=== PATIENT | male | born 1950 | race Caucasian/White ===

== ENCOUNTER → 2017-01-28 | Outpatient (CLI) | payer OTHER, MEDICAID | LOC: FIMAGING 12:57 | PROVIDERS: ATTEND Internal Medicine Hematology & Oncology | DX: D47.2 Monoclonal gammopathy (principal) ==

== ENCOUNTER → 2018-06-04 | Outpatient (CLI) | payer OTHER, MEDICAID ==
[~2018-06-04] MED LIST: GADOBUTROL 10 ML VIAL IVP ONE
== END ==
LOC: FIMAGING 15:11
DX: R47.01 Aphasia (principal)
CPT/HCPCS: 70553; A9585; 82565-PO

== ENCOUNTER 2018-06-19 14:51 | Inpatient (IN) | payer OTHER, MEDICAID ==
--- NOTE | 2018-06-19 15:16 | EDPHY ---
HPI/HX/ROS/PE/MDM Narrative: CHIEF COMPLAINT: "I thought I may have been having some clots". HISTORY OF PRESENT ILLNESS: This patient is 67 year old male with past medical history including hypertension, PE/DVT, and lumbar back pain/nerve impingement. He arrives today via EMS for evaluation of bilateral "kidney pain" as well as right lower extremity pain and swelling. His symptoms began four days ago. Today, his discomfort is somewhat relieved. He denies any swelling or discoloration in his leg, and those symptoms did occur with his prior clots. He states the pain is also different in this case; "it feels like I ran into a tree and bruised myself ". In the past, his clots have been associated with sharp pains. He presents today because his daughter, who is a AMMUNITION SPECIALIST, felt that his legs seemed swollen and recommended he visit his primary care provider. His PCP's office recommended he come to the ED to r/o DVT. Saturday, the patient felt unwell with nausea and vomiting. He has felt lightheaded with orthostatic changes. He endorses difficulty urinating this week. Denies dysuria. No fever, chills, chest pain, shortness of breath, palpitations, diarrhea, headache, extremity numbness, paresthesias, or weakness. Of note, the patient was formerly anticoagulated (Xarelto) for his PEs/DVTs, but this was discontinued in January following two falls with head injuries. REVIEW OF SYSTEMS: A comprehensive 10 system review of systems is otherwise negative aside from elements mentioned in the history of present illness and medical decision making. PAST MEDICAL HISTORY: 1. History of PE / LLE DVT 2. GERD 3. Diverticulitis 4. Depression 6. Hypertension 7. Lumbar impingement/sciatica 8. History of acute kidney injury 9. History of closed head injury SOCIAL HISTORY: Nonsmoker. Single. Retired. Lives in [place]. VITAL SIGNS: Reviewed by me GENERAL: Tremorous, somewhat uncomfortable appearing. No respiratory distress. HEENT: Atraumatic. Eyes: No icterus, no injection. Mouth: dry mucous membranes. No erythema or lesions. Neck: supple with no adenopathy. LUNGS: Tachypneic. Initial wheeze on the left, cleared with inspiration. CARDIAC: Regular tachycardia, no rubs, murmurs or gallops. ABDOMEN: Soft, nontender, nondistended, bowel sounds normal. BACK: Pain over bilateral SI areas. EXTREMITIES: RLE: Swollen, tense, warm to touch from mid thigh through popliteal fossa to calf. Femoral pulses present, right decreased compared to left. Good distal pulses. No trauma. Range of motion is normal throughout. NEURO: Alert and oriented, grossly nonfocal. SKIN: Warm and dry, no rash. PSYCHIATRIC: Normal mentation, no agitation. Portions of this note were transcribed by a medical technicians. I personally performed a history, physical exam, medical decision making, and confirmed accuracy of information the transcribed note. ED Course: 67 year old male with history of prior PE/DVT presents with right calf pain and bilateral lower back pain. He is not currently anticoagulated. He was hypoxic at triage, SpO2 88%. He is mildly tachypneic and tachycardic, and appears tremorous and uncomfortable. On exam, the patient's RLE appears swollen, tense, and warm to touch from mid-thigh to calf. His back discomfort is primarily over the sacroiliac area bilaterally. Lungs are clear to auscultation with the exception of wheeze on the left which cleared. IV established. He is no longer anticoagulated. Plan for EKG, chest x-ray, labs including CBC, chemistries, liver panel, BNP, UA , d-dimer. Plan for i-stat Troponin and Chem8. Plan for US RLE to r/o DVT or other acute processes. He declines any pain medication at this time. Plan to administer 1L IV NS. Reviewed i-stat. BGL elevated at 232. Otherwise normal, Creatinine 0.6. Troponin negative. 16:00 12-LEAD EKG: Please see the full report in [facility]. My interpretation: Sinus tachycardia, abnormal R wave progression, borderline T wave abnormalities. D-dimer elevated at 8.62. US report pending. Reviewed chest x-ray. Evidence of chronic bronchitis/airways disease. Patchy left lower lobe retrocardiac opacity may represent acute pneumonia vs pulmonary embolus. Discussed these findings with the patient. He feels this may be chronic from his prior PE. Plan for CTA of the chest for further evaluation. 17:[address] Joyner, radiologist. US RLE shows evidence of large thrombus extending from the common femoral vein to the popliteal on the right. Plan to administer Heparin per standard ED protocol. 18:[address] Nix, hospitalist. Plan for admission as above. 18:[address] Hurtado, radiologist. CTA shows bilateral PEs with near complete occlusion on the right. No evidence of right heart strain. No evidence of pneumonia. 18:37 Dr. Nix accepts admission for bilateral PEs, RLE DVT. 18:41 Spoke with patient's daughter per his request. Sepsis Evaluation Note: The patient presents to the ED with leg swelling, shortness of breath, some tachypnea, and hypoxia. There is no history of fever or upper respiratory infection. Chest x-ray initially demonstrated a possible pneumonia, however CT scan did not confirm this. Patient did have an elevated initial lactic acid at 2.4. I do not believe this represents severe sepsis. Patient does not meet criteria for sepsis. Repeat lactic acid has diminished to 2.0. MDM: Differential diagnosis for the patient's primary complaint of leg swelling was considered including but not limited to cellulitis, hypoalbuminemia, congestive heart failure, cor pulmonale, chronic venous stasis and DVT. - Data Points Imaging Results: Chest X-Ray 06/19/18 15:42 Impression: 1. Chronic bronchitis/airways disease. 2. Linear scarring in the right lower lobe. 3. Patchy left lower lobe retrocardiac opacity may represent acute pneumonia. 4. Consider additional imaging if clinically indicated. Extremity Venous Study 06/19/18 15:42 Impression: 1. DVT right lower extremity extending from the common femoral vein through the popliteal vein. Findings discussed with Paz Monaco MD at 17:04 hour, 06/19/2018. Chest/Thorax CTA 06/19/18 16:59 Impression: 1. Acute bilateral pulmonary embolism as described, no CT evidence of right heart strain. 2. Decrease in size of focal irregular opacity in the right lower lobe with adjacent linear scarring. This may represent scarring from previous pneumonia, given stability malignancy is much less likely, however consideration of PET scan for further evaluation may be helpful as clinically warranted These findings were discussed with Paz Monaco by telephone at 6:32 PM on . Imaging: I viewed and interpreted images myself Laboratory Results: Laboratory Results 06/20/18 06:40 06/19/18 15:35 Medications Given: Bupropion HCl (Wellbutrin Xl) 150 mg PO DAILY [facility] Stop: 12/17/18 08:59 Last Admin: 06/21/18 09:54 Dose: 150 mg Dabigatran (Pradaxa) 150 mg PO BID [facility] Stop: 12/17/18 17:59 Last Admin: 06/21/18 09:54 Dose: 150 mg Docusate Sodium (Colace) 100 mg PO DAILY@18 [facility] Stop: 12/17/18 17:59 Last Admin: 06/20/18 19:18 Dose: 100 mg Duloxetine HCl (Cymbalta) 60 mg PO BID [facility] Stop: 12/17/18 08:59 Last Admin: 06/21/18 09:54 Dose: 60 mg Ezetimibe (Zetia) 10 mg PO DAILY [facility] Stop: 12/17/18 08:59 Last Admin: 06/21/18 09:54 Dose: 10 mg Finasteride (Proscar) 5 mg PO HS [facility] Stop: 12/17/18 20:59 Last Admin: 06/20/18 22:15 Dose: 5 mg Insulin Human Lispro (Humalog Lispro) 0 unit SC TIDMEAL [facility] PRN Reason: Protocol Stop: 12/17/18 07:59 Last Admin: 06/21/18 09:57 Dose: Not Given Magnesium Hydroxide (Milk Of Magnesia) 30 ml PO DAILY@18 [facility] Stop: 12/17/18 17:59 Last Admin: 06/20/18 19:18 Dose: 30 ml Miscellaneous Medication (Linaclotide [Linzess]) 145 mcg PO DAILY [facility] Stop: 12/17/18 08:59 Last Admin: 06/21/18 09:58 Dose: 145 mcg Polyethylene Glycol (Miralax) 17 gm PO DAILY@18 [facility] Stop: 12/17/18 17:59 Last Admin: 06/20/18 19:18 Dose: 17 gm Senna/Docusate Sodium (Senokot-S) 1 - 2 tab PO BID [facility] PRN Reason: Protocol Stop: 12/17/18 20:59 Last Admin: 06/21/18 09:54 Dose: 2 tab Discontinued Medications Heparin Sodium (Porcine) (Heparin Injection) 0 unit IVP EDNOW ONE Stop: 06/19/18 17:01 Last Admin: 06/19/18 17:24 Dose: 6,300 units Heparin Sodium (Porcine) (Heparin Injection) 0 unit IVP PRN PRN PRN Reason: re-bolus required by protocol Stop: 12/16/18 19:25 Last Admin: 06/20/18 14:31 Dose: 1,177 units Sodium Chloride (Ns) 1,000 mls @ 0 mls/hr IV ONCE ONE; Wide Open PRN Reason: Protocol Stop: 06/19/18 15:42 Last Admin: 06/19/18 16:39 Dose: 1,000 mls Heparin Sodium (Porcine) (Heparin 50 Units/Ml (Premix)) 500 mls @ 0 mls/hr IV EDNOW ONE; Per Protocol PRN Reason: Protocol Stop: 06/19/18 17:01 Last Admin: 06/19/18 17:30 Dose: 500 mls Sodium Chloride (Ns) 1,000 mls @ 100 mls/hr IV CONT [facility] Stop: 12/16/18 19:14 Last Admin: 06/20/18 11:22 Dose: 1,000 mls Heparin Sodium (Porcine) (Heparin 50 Units/Ml (Premix)) 500 mls @ 0 mls/hr IV CONT [facility]; Per Protocol PRN Reason: Protocol Stop: 06/20/18 20:30 Last Admin: 06/20/18 11:22 Dose: 500 mls Point of Care Test Results: Chemistry 06/20/18 06/20/18 06/20/18 13:27 13:23 07:45 POC Sodium POC Potassium POC Chloride POC BUN POC Creatinine POC Glucose 106 mg/dL H mg/dL < 20 mg/dL L* mg/dL 104 mg/dL H mg/dL (70-100) (70-100) (70-100) POC Troponin I 06/20/18 06/19/18 06/19/18 02:03 16:03 15:59 POC Sodium 140 mEq/L mEq/L (135-145) POC Potassium 3.7 mEq/L mEq/L (3.3-5.0) POC Chloride 109 mEq/L mEq/L (97-110) POC BUN 21 mg/dL mg/dL (7-23) POC Creatinine 0.6 mg/dL L mg/dL (0.7-1.3) POC Glucose 95 mg/dL mg/dL 232 mg/dL H mg/dL (70-100) (70-100) POC Troponin I 0.01 ng/mL ng/mL (0.00-0.08) ISTAT H&H 06/19/18 16:03 POC Hgb 15.3 gm/dL gm/dL (13.7-17.5) POC Hct 45 % % (40-51) General Time Seen by Provider: 06/19/18 15:12 Initial Vital Signs: Initial Vital Signs Heart Rate 126 H 06/19/18 15:02 Respiratory Rate 18 06/19/18 15:02 Blood Pressure 149/94 H 06/19/18 15:02 O2 Sat (%) 88 L 06/19/18 15:02 O2 Delivery Mode Nasal Cannula O2 (L/minute) 1 Allergies/Adverse Reactions: Sulfa (Sulfonamide Antibiotics) Allergy (Verified 06/19/18 19:55) Rash, Itching Home Medications: Medication Instructions Recorded Docusate Sodium [Colace 100 MG (*)] 100 mg PO DAILY@18 02/27/15 Magnesium Hydroxide [Milk of 30 ml PO DAILY@02/27/15 Magnesia (*)] diphenhydrAMINE [Benadryl 25 MG 25 - 50 mg PO HS PRN 02/27/15 (*)] DULoxetine [Cymbalta 60 MG (*)] 60 mg PO BID 02/28/15 Ezetimibe [Zetia 10 MG (*)] 10 mg PO DAILY 06/19/18 Finasteride [Proscar 5 MG (*)] 5 mg PO HS 06/19/18 Herbals/Supplements -Info Only 1 ea PO Q2D 06/19/18 Linaclotide [Linzess] 145 mcg PO DAILY 06/19/18 Polyethylene Glycol 3350 [Miralax 17 gm PO DAILY@18 06/19/18 17 gm (*)] Psyllium Husk/Aspartame [Metamucil 3.4 gm PO DAILY@18 06/19/18 Fiber Singles Packet] buPROPion XL [Wellbutrin 150mg XL] 150 mg PO DAILY 06/19/18 Dabigatran Etexilate Mesyl 150 mg PO BID #60 cap 06/21/18 [Pradaxa 150 MG (*)] Departure - Departure Disposition: [facility] Acute Clinical Impression: Bilateral pulmonary embolism Deep vein thrombosis (DVT) of right lower extremity Qualifiers: Affected thrombotic vein of extremity: femoral Chronicity: acute Qualified Code (s): I82.411 - Acute embolism and thrombosis of right femoral vein Condition: Fair Report Scribed for: Paz Monaco Report Scribed by: Patria Chao Date of Report: 06/19/18 Time of Report: 15:16
[2018-06-19] MEDS ORDERED: NS 1,000 ML IV ONE (15:41)
[2018-06-19 16:06] LABS: PLATELET COUNT 289 10^3/uL (150-400)
[2018-06-19] MEDS ORDERED: HEPARIN 10,000 UNIT/10 ML MDV (1,000 UNIT/ML) IVP ONE (17:00)
[2018-06-19] MEDS ORDERED: HEPARIN/DEXTROSE 500 ML IV ONE (17:00)
[2018-06-19 17:16] LABS: INR 1.08 (0.83-1.16); PROTIME(PATIENT) 14.2 SEC (12.0-15.0)
[2018-06-19] MEDS ORDERED: IOPAMIDOL (ISOVUE 370) 100 ML BTL IV ONE (18:04)
[2018-06-19] MEDS ORDERED: ONDANSETRON 4 MG/2 ML VIAL IVP PRN (19:07)
[2018-06-19] MEDS ORDERED: LORazepam 0.5 MG TAB PO PRN (19:07)
[2018-06-19] MEDS ORDERED: oxyCODONE IR 5 MG TAB PO PRN (19:07)
[2018-06-19] MEDS ORDERED: ONDANSETRON DISINTEGRATING 4 MG TAB PO PRN (19:07)
[2018-06-19] MEDS ORDERED: ACETAMINOPHEN 325 MG TAB PO PRN (19:07)
--- NOTE | 2018-06-19 19:15 | PDGENHP ---
History and Physical - Chief Complaint right leg and "kidney" pain - History of Present Illness 67yo M with history of multiple recurrent PE/DVTs taken off anticoagulation by Dr Gonzalez 01/2018 due to a series of falls presents with 2-3 days of worsening right leg and "kidney" pain. He symptoms are quite vague. He has noticed some slight swelling of his right leg. He denies any shortness of breath, chest pain , pleuritic pain, or presyncopal symptoms. In the ED, a RLE ultrasound showed a DVT involving the common femoral vein. Due to mild tachycardia and relative hypoxemia (sat 88%), a CTA of chest was done which showed acute bilateral PEs. He was started on IV heparin. Case discussed with ED physician Paz Monaco. History Information - Allergies/Home Medication List Allergies/Adverse Reactions: Sulfa (Sulfonamide Antibiotics) Allergy (Verified 06/19/18 15:06) SULFA Allergy (Uncoded 06/19/18 15:06) Home Medications: ARIPiprazole [Abilify 5 mg (*)] 5 mg PO DAILY 02/27/15 [Last Taken 02/27/15] Dextroamphetamine/Amphetamine [Adderall Xr 5 mg Capsule] 5 mg PO DAILY 02/27/15 [Last Taken 02/27/15] Docusate Sodium [Colace 100 MG (*)] 500 mg PO HS 02/27/15 [Last Taken 02/26/15] Ibuprofen [Motrin (*)] 400 mg PO Q8 PRN 02/27/15 [Last Taken 02/26/15] Lisinopril [Zestril 20 mg (*)] 20 mg PO HS 02/27/15 [Last Taken 02/26/15] Magnesium Hydroxide [Milk of Magnesia (*)] 30 ml PO HS 02/27/15 [Last Taken 03/05] diphenhydrAMINE [Benadryl 25 MG (*)] 25 - 50 mg PO HS PRN 02/27/15 [Last Taken 02/26/15] DULoxetine [Cymbalta 60 MG (*)] 60 mg PO BID 02/28/15 [Last Taken 02/27/15] I have personally reviewed and updated: family history, medical history, social history, surgical history - Past Medical History Additional medical history: multiple recurrent DVT and PE, HTN, RLL pulmonary nodule, recurrent diverticulitis, sciatic nerve pain, 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, perianal cyst with fistula tract formation, h/o failure to thrive requiring 24 hour care at disposition, major depressive disorder, tremor - Surgical History Reports: no pertinent surgical hx - Family History Additional family history: father of pancreatic cancer, mother had lung cancer, no known thromboembolic disease - Social History Smoking Status: Never smoked Alcohol Use: Rarely Drug Use: None Additional social history: Currently lives independently in [place], has daughter in the area Review of Systems Review of Systems: ROS: 10pt was reviewed & negative except for what was stated in HPI & below Physical Exam Physical Exam: Temp Pulse Resp BP Pulse Ox 102 H 18 143/84 H 93 06/19/18 17:22 06/19/18 17:22 06/19/18 17:22 06/19/18 17:22 Constitutional: no apparent distress, appears nourished, not in pain Eyes: PERRL, anicteric sclera, EOMI Ears, Nose, Mouth, Throat: moist mucous membranes, hearing normal, ears appear normal, no oral mucosal ulcers Cardiovascular: regular rate and rhythym, no murmur, rub, or gallop, edema ( trace pitting edema in BLE), No JVD Respiratory: no respiratory distress, no rales or rhonchi, clear to auscultation Gastrointestinal: normoactive bowel sounds, soft, non-tender abdomen, no palpable masses Genitourinary: no bladder fullness, no bladder tenderness Skin: warm, normal color, no rashes or abrasions, no fluctuance, no induration, No mottled Musculoskeletal: full muscle strength, no muscle tenderness, normal joint ROM, no joint effusions Neurologic: AAOx3, other (bilateral arm tremor) Psychiatric: interacting appropriately, not anxious, not encephalopathic, thought process linear Lab Data & Imaging Review 06/19/18 15:35 06/19/18 15:35 WBC 7.41 10^3/uL (3.80-9.50) 06/19/18 15:35 RBC 5.00 10^6/uL (4.40-6.38) 06/19/18 15:35 Hgb 15.1 g/dL (13.7-17.5) 06/19/18 15:35 POC Hgb 15.3 gm/dL (13.7-17.5) 06/19/18 16:03 Hct 44.3 % (40.0-51.0) 06/19/18 15:35 POC Hct 45 % (40-51) 06/19/18 16:03 MCV 88.6 fL (81.5-99.8) 06/19/18 15:35 MCH 30.2 pg (27.9-34.1) 06/19/18 15:35 MCHC 34.1 g/dL (32.4-36.7) 06/19/18 15:35 RDW 13.5 % (11.5-15.2) 06/19/18 15:35 Plt Count 289 10^3/uL (150-400) 06/19/18 15:35 MPV 9.8 fL (8.7-11.7) 06/19/18 15:35 Neut % (Auto) 69.0 % (39.3-74.2) 06/19/18 15:35 Lymph % (Auto) 18.4 % (15.0-45.0) 06/19/18 15:35 [place] % (Auto) 7.8 % (4.5-13.0) 06/19/18 15:35 Eos % (Auto) 3.5 % (0.6-7.6) 06/19/18 15:35 Baso % (Auto) 0.4 % (0.3-1.7) 06/19/18 15:35 Nucleat RBC Rel Count 0.0 % (0.0-0.2) 06/19/18 15:35 Absolute Neuts (auto) 5.11 10^3/uL (1.70-6.50) 06/19/18 15:35 Absolute Lymphs (auto) 1.36 10^3/uL (1.00-3.00) 06/19/18 15:35 Absolute Monos (auto) 0.58 10^3/uL (0.30-0.80) 06/19/18 15:35 Absolute Eos (auto) 0.26 10^3/uL (0.03-0.40) 06/19/18 15:35 Absolute Basos (auto) 0.03 10^3/uL (0.02-0.10) 06/19/18 15:35 Absolute Nucleated RBC 0.00 10^3/uL (0-0.01) 06/19/18 15:35 Immature Gran % 0.9 % (0.0-1.1) 06/19/18 15:35 Immature Gran # 0.07 10^3/uL (0.00-0.10) 06/19/18 15:35 PT 14.2 SEC (12.0-15.0) 06/19/18 15:35 INR 1.08 (0.83-1.16) 06/19/18 15:35 APTT 25.9 SEC (23.0-38.0) 06/19/18 15:35 D-Dimer 8.62 ug/mLFEU (0.00-0.50) H 06/19/18 15:35 VBG Lactic Acid 2.3 mmol/L (0.7-2.1) H 06/19/18 16:54 POC Sodium 140 mEq/L (135-145) 06/19/18 16:03 Sodium 139 mEq/L (135-145) 06/19/18 15:35 POC Potassium 3.7 mEq/L (3.3-5.0) 06/19/18 16:03 Potassium 4.1 mEq/L (3.3-5.0) 06/19/18 15:35 POC Chloride 109 mEq/L (97-110) 06/19/18 16:03 Chloride 108 mEq/L (97-110) 06/19/18 15:35 Carbon Dioxide 18 mEq/l (22-31) L 06/19/18 15:35 Anion Gap 13 mEq/L (6-14) 06/19/18 15:35 POC BUN 21 mg/dL (7-23) 06/19/18 16:03 BUN 20 mg/dL (7-23) 06/19/18 15:35 Creatinine 0.7 mg/dL (0.7-1.3) 06/19/18 15:35 POC Creatinine 0.6 mg/dL (0.7-1.3) L 06/19/18 16:03 Estimated GFR > 60 06/19/18 15:35 Glucose 223 mg/dL (70-100) H 06/19/18 15:35 POC Glucose 232 mg/dL (70-100) H 06/19/18 16:03 Calcium 10.2 mg/dL (8.5-10.4) 06/19/18 15:35 Total Bilirubin 0.4 mg/dL (0.1-1.4) 06/19/18 15:35 Conjugated Bilirubin 0.1 mg/dL (0.0-0.5) 06/19/18 15:35 Unconjugated Bilirubin 0.3 mg/dL (0.0-1.1) 06/19/18 15:35 AST 30 IU/L (17-59) 06/19/18 15:35 ALT 35 IU/L (21-72) 06/19/18 15:35 Alkaline Phosphatase 85 IU/L (38-126) 06/19/18 15:35 POC Troponin I 0.01 ng/mL (0.00-0.08) 06/19/18 15:59 NT-Pro-B Natriuret Pep 51 pg/mL (0-125) 06/19/18 15:35 Total Protein 6.8 g/dL (6.3-8.2) 06/19/18 15:35 Albumin 3.8 g/dL (3.5-5.0) 06/19/18 15:35 Visualized and Interpreted imaging results: Yes Interpretation: CXR: chronic bronchitis, RLL linear scarring. RLE duplex US: + for DVT involving common femoral to popliteal veins. CTA chest: acute bilateral PEs invovling R and L main pulmonary arteries, no e/o right heart strain Visualized and Interpreted EKG results: Yes EKG additional interpertation: ECG: sinus rhtyhm, early R wave progression, no right heart strain, no acute ischemia Assessment & Plan Assessment: 67yo M with history of multiple recurrent PE/DVTs taken off anticoagulation by Dr Gonzalez 01/2018 due to a series of falls presents with 2-3 days of vague right leg and back pain found to have RLE DVT and bilateral PEs. Plan: 1. Acute bilateral pulmonary emboli and RLE DVT: Fortunately he is hemodynamically stable without radiographic or ecg evidence of right heart strain. Oxygenating well on room air. This is a recurrent issue for him; hypercoaguable work up in past unrevealing. PESI score 96, indicating intermediate risk. - Continue heparin gtt - Would involve hematology in AM to discuss anticoagulation strategy moving forward (he has reportedly clotted through therapeutic warfarin and has history of falls prompting discontinuation of OAC in the past - IVC filter may not be bad idea to consider - Gentle IVF to maintain preload 2. Elevated lactate: Hypoperfusion related to clots. IVF and will recheck. 3. H/o falls: Will order PT/OT 4. RLL pulmonary nodule: Stable on imaging 5. HTN: Hold home lisinopril for now. 6. Depression: Home meds. VTE ppx: therapeutic anticoagulation Diet: regular Code: full Dispo: Admit under observation for management of acute PE/DVT.
[2018-06-19] MEDS ORDERED: HEPARIN 10,000 UNIT/10 ML MDV (1,000 UNIT/ML) IVP PRN (19:26)
[2018-06-19] MEDS ORDERED: HEPARIN/DEXTROSE 500 ML IV SCH (19:30)
[2018-06-19] MEDS ORDERED: D50W 25 GM/50 ML SYR IVP PRN (19:34)
[2018-06-19] MEDS ORDERED: diphenhydrAMINE 25 MG CAP PO PRN (21:53)
--- NOTE | 2018-06-19 23:21 | CPEKG ---
Test Reason : OPEN Blood Pressure : / mmHG Vent. Rate : 102 BPM Atrial Rate : 103 BPM P-R Int : 133 ms QRS Dur : 082 ms QT Int : 291 ms P-R-T Axes : 060 056 079 degrees QTc Int : 379 ms Sinus tachycardia Abnormal R-wave progression, early transition Borderline T wave abnormalities u waves seen Confirmed by Paz Monaco ([id number]) on 06/19/2018 11:20:28 PM Referred By: Confirmed By:Paz Monaco
[2018-06-19] MEDS: NS 1,000 ML IV SCH (23:52)
[2018-06-20] MEDS: INSULIN LISPRO 100 UNIT/ML SC SCH ×3 (07:58→18:24)
[2018-06-20] MEDS: buPROPion XL 150 MG TAB PO SCH (09:02)
[2018-06-20] MEDS: DULoxetine 60 MG CAP PO SCH ×2 (09:02→22:15)
[2018-06-20] MEDS: EZETIMIBE 10 MG TAB PO SCH (09:14)
[2018-06-20] MEDS: Linaclotide [Linzess] 145 MCG PO SCH (10:18)
[2018-06-20] MEDS ORDERED: HEPARIN/DEXTROSE 500 ML IV SCH (11:00)
[2018-06-20] MEDS: NS 1,000 ML IV SCH (11:22)
[2018-06-20] MEDS ORDERED: MAGNESIUM HYDROXIDE 30 ML UDCUP PO PRN (11:45)
[2018-06-20] MEDS ORDERED: BISACODYL 10 MG SUPP PR PRN (11:45)
[2018-06-20] MEDS ORDERED: LACTULOSE 20 GM/30 ML UDCUP PO PRN (11:45)
[2018-06-20] MEDS ORDERED: POLYETHYLENE GLYCOL 3350 17 GM PKT PO PRN (11:45)
--- NOTE | 2018-06-20 14:27 | HOSPPROG ---
Hospitalist Progress Note Assessment/Plan: 67yo M with history of multiple recurrent PE/DVTs taken off anticoagulation by Dr Gonzalez 01/2018 due to a series of falls presents with 2-3 days of vague right leg and back pain found to have RLE DVT and bilateral PEs. First encounter , chart reviewed. Have asked hematology, oncology to see * Acute bilateral pulmonary emboli and RLE DVT -heparin gtt- will dc this 30 minutes prior to starting Pradaxa this evening -has failed Coumadin in the OP setting, also has falling issues due to a neuropathy -appreciate Dr Barclay -will start him on Pradaxa-it has a reversal agent (have asked CM to be sure this can be covered) -hypoxia due to this * Elevated lactate -resolved * H/o falls -has had a full w/u done by neurology and it is r/t ongoing neuropathy in his legs and they give out -PT and OT to see -has some care givers a few days a week but likely needs more -spoke w CM and they will f/u *enlarged prostate -has an appt w a urologist for further evaluation -reviewed his ua which does not show any infectious etiology. * RLL pulmonary nodule: Stable on imaging * HTN: Hold home lisinopril for now. * Depression: Home meds resumed *Plan: patient will need to be transitioned to OAC, started this evening/ will ask PT to evaluate to be sure he is stable to return home. Family is concerned about his ongoing weakness. Hopefully, can dc in the morning. Subjective: Ron is concerned about ongoing weakness and neuropathy in his legs , having some difficulty w voiding (has an appt to f/u with urology) Objective: Vital Signs Temp Pulse Resp BP Pulse Ox 36.5 C 71 16 125/73 H 97 06/20/18 12:00 06/20/18 12:00 06/20/18 12:00 06/20/18 12:00 06/20/18 12:00 Laboratory Results 06/20/18 06:40 06/19/18 06/20/18 06/21/18 05:59 05:59 05:59 Intake Total 1000 Output Total 800 525 Balance 200 -525 PT 14.2 SEC (12.0-15.0) 06/19/18 15:35 INR 1.08 (0.83-1.16) 06/19/18 15:35 - Physical Exam Constitutional: appears nourished, chronically ill appearing Eyes: PERRL Ears, Nose, Mouth, Throat: hearing normal Cardiovascular: regular rate and rhythym Respiratory: no respiratory distress Gastrointestinal: normoactive bowel sounds Skin: warm, No normal color (pale) Musculoskeletal: generalized weakness Neurologic: AAOx3 Psychiatric: interacting appropriately, not anxious, not encephalopathic ICD10 Worksheet Patient Problems: Problems Problem Status Onset Bilateral pulmonary embolism Acute Deep vein thrombosis (DVT) of right lower extremity Acute Acute renal failure syndrome Acute
--- NOTE | 2018-06-20 15:28 | GCON ---
NEW PATIENT CONSULTATION. PRIMARY STOCK ROOM MANAGER: Dr. Ron Gonzalez. CONSULTING PHYSICIAN: Dr. Ysabel Baires. REASON FOR CONSULTATION: Recurrent DVT and PE. HISTORY OF PRESENT ILLNESS: This is a very pleasant 67-year-old gentleman with an unknown neurologic disorder, who presented with 2-3 days of worsening right leg pain as well as pelvic and "kidney pain ." Symptoms were quite vague, but the pain was excruciating. He did not specifically notice any pain or discoloration in the right leg. He denied any shortness of breath or chest pain. Denied pleurit ic pain or presyncopal symptoms. In the emergency room yesterday a right lower extremity ultrasound showed DVT involving common femoral vein. Due to mild hypoxemia, a CTA of the chest was done, which showed acute bilateral PEs with no right heart strain. Specifically central filling defects seen in the right and left pulmonary artery centrally with near-complete occlusive clot burden involving apic al, middle lobe and lower lobe branches, probably posteriorly. He also has a right lower lobe nodule , now 1.1 cm, which is apparently decreased in size from previous. The patient was started on an IV heparin drip and admitted to the hospital. Today, he is feeling better. He denies any new pain. Denies any bleeding. He was last on Xarelto i n January 2018, but taken off due to a series of falls. Fall are attributed to an unknown neurologic pr ocess, something like muscular dystrophy, but not exactly. REVIEW OF SYSTEMS: Patient is also complaining of difficulty urinating without dysuria and some bila teral abdominal pain, but he is eating without difficulty and denies any unintentional weight loss. Otherwise, 14-point review of systems negative. PAST MEDICAL HISTORY: Two DVT, PEs in the past, about 5 or so years ago, history of right lower lobe pulmonary nodule, recurrent diverticulitis, sciatic nerve pain, short-term memory issues secondary t o traumatic brain injury in 2013. Major depressive disorder and tremor. SOCIAL HISTORY: Nothing pertinent. FAMILY HISTORY: Father of pancreatic cancer. Mother had lung cancer. No known thromboembolic disease. SOCIAL HISTORY: Never smoked. Rare alcohol use. Currently lives independently. Has a daughter in the area. PHYSICAL EXAM: VITAL SIGNS: Blood pressure 125/73, pulse is 71, saturating 97% on 1 L nasal cannula , temp is 36.5. GENERAL: He is a 67-year-old gentleman, looks older than his stated age. Somewhat ch ronically ill appearing. HEENT: Anicteric. HEART: Regular rate and rhythm. LUNGS: Clear to ausculta tion bilaterally. ABDOMEN: Mild distention. Bowel sounds are positive. No tenderness throughout. LOWER EXTREMITIES: Show no edema. LABS: CBC shows a white blood cell count of 6.6, hemoglobin 13, hematocrit 37.9, platelet count of 2 35,000. CMP shows normal creatinine at 0.6, estimated GFR greater than 60. LFTs unremarkable. Urin e was negative and imaging as described above. ASSESSMENT AND PLAN: A 67-year-old gentleman with a history of multiple recurrent pulmonary embolus, deep vein thromboses, recently taken off anticoagulation in January due to a series of falls for underl staci neurologic disorder, who presents with new right lower extremity DVT and bilateral PEs. 1. Acute bilateral pulmonary emboli and right lower extremity deep vein thrombosis. Oxygenating wel l on 1 L nasal cannula today. Hyper coag workup in the past has been unrevealing, but I did not go t hrough this again because this would not change the overall management. Patient does need to be on l ifelong anticoagulation. The safest drug do so will be discussed below. The patient has no cardiova scular compromise and doing well on a heparin drip. It sounds like patient clotted on warfarin with a therapeutic INR in the past. Discussed Pradaxa as now we do have an antidote that is called Praxbi nd. This is a humanized anti dabigatran monoclonal antibody that we have commercially available, nancie almeida I discussed with the patient today. His creatinine is appropriate and all other labs look okay to start the drug, it is 150 mg p.o. twice daily and can be initiated later today or tomorrow morning de pending on whether he leaves. IVC filter would not be recommended outside an absolute contraindicati on to anticoagulation. The patient will follow up with Dr. Ron Gonzalez as an outpatient. He knows to discuss discontinuation of the drug if any procedures are planned in the future. 2. History of right lower lobe pulmonary nodule, stable on imaging. This is known. No changes. 3. Abdominal pain, urinary retention, has known BPH. He is eating well. Today will at least check a urinalysis, but may need to follow this up as an outpatient with an abdominal ultrasound. About 45 minutes was spent with the patient, more than 50% of time counseling and coordinating care. /[id number]/MODL
--- NOTE | 2018-06-20 16:05 | PDMN ---
Medical Necessity Medical necessity: Pt meets IP criteria as of 06/20/2018 per and MCG M-290 ( Pulmonary Embolism); los > 2 mn for ongoing tx and management of bilateral pulmonary embolism with hypoxemia and R leg DVT; requiring heparin gtt, and therapies.
--- NOTE | 2018-06-20 17:15 | ASMTCMCOM ---
CM Note CM Note Notes: Pt admitted w/bilat PE and leg dvt. Pt lives alone in a small apt, has caregiver 3/week for 2.5hrs. Will likely dc on Pradaxa, covered 100% by his insurance for 30 days. May get IVC filter. OT recommend, PT eval pending. DC Plan: TBD Date Signed: 06/20/2018 05:15 PM Electronically Signed By:Marleni Gallardo RN
[2018-06-20] MEDS ORDERED: MAGNESIUM HYDROXIDE 30 ML UDCUP PO SCH (18:00)
[2018-06-20] MEDS ORDERED: DOCUSATE SODIUM 100 MG CAP PO SCH (18:00)
[2018-06-20] MEDS: DABIGATRAN ETEXILATE MESYL 150 MG CAP PO SCH (19:18)
[2018-06-20] MEDS: POLYETHYLENE GLYCOL 3350 17 GM PKT PO SCH (19:18)
[2018-06-20] MEDS ORDERED: DABIGATRAN ETEXILATE MESYL 150 MG CAP PO SCH (21:00)
[2018-06-20] MEDS ORDERED: FINASTERIDE 5 MG TAB PO SCH (21:00)
[2018-06-20] MEDS: SENNOSIDES/DOCUSATE SODIUM TAB PO SCH (22:16)
[2018-06-21] MEDS: DABIGATRAN ETEXILATE MESYL 150 MG CAP PO SCH (09:54)
[2018-06-21] MEDS: EZETIMIBE 10 MG TAB PO SCH (09:54)
[2018-06-21] MEDS: DULoxetine 60 MG CAP PO SCH (09:54)
[2018-06-21] MEDS: SENNOSIDES/DOCUSATE SODIUM TAB PO SCH (09:54)
[2018-06-21] MEDS: buPROPion XL 150 MG TAB PO SCH (09:54)
[2018-06-21] MEDS: INSULIN LISPRO 100 UNIT/ML SC SCH ×2 (09:57→14:09)
[2018-06-21] MEDS: Linaclotide [Linzess] 145 MCG PO SCH (09:58)
--- NOTE | 2018-06-21 10:22 | HOSPPROG ---
Hospitalist Progress Note Assessment/Plan: 67yo M with history of multiple recurrent PE/DVTs taken off anticoagulation by Dr Gonzalez 01/2018 due to a series of falls presents with 2-3 days of vague right leg and back pain found to have RLE DVT and bilateral PEs. * Acute bilateral pulmonary emboli and RLE DVT - Pradaxa bid - has failed Coumadin in the OP setting, also has falling issues due to a neuropathy - appreciate Dr Barclay - will start him on Pradaxa-it has a reversal agent (have asked CM to be sure this can be covered) - hypoxia due to this * Elevated lactate -resolved * H/o falls -has had a full w/u done by neurology and it is r/t ongoing neuropathy in his legs and they give out -PT and OT to see -has some care givers a few days a week but likely needs more *enlarged prostate -has an appt w a urologist for further evaluation -reviewed his ua which does not show any infectious etiology. * RLL pulmonary nodule: Stable on imaging * HTN: Hold home lisinopril for now. * Depression: Home meds resumed *Plan: dc home w home care Subjective: Ron is feeling well, has no complaints. Objective: Vital Signs Temp Pulse Resp BP Pulse Ox 36.6 C 72 16 139/76 H 94 06/21/18 07:35 06/21/18 07:35 06/21/18 07:35 06/21/18 07:35 06/21/18 07:35 Laboratory Results 06/21/18 04:59 06/20/18 06/21/18 06/22/18 05:59 05:59 05:59 Intake Total 250 Output Total 850 650 Balance -600 -650 PT 14.2 SEC (12.0-15.0) 06/19/18 15:35 INR 1.08 (0.83-1.16) 06/19/18 15:35 - Physical Exam Constitutional: no apparent distress, appears nourished Eyes: PERRL Ears, Nose, Mouth, Throat: hearing normal Respiratory: no respiratory distress Skin: warm Musculoskeletal: generalized weakness Neurologic: AAOx3 ICD10 Worksheet Patient Problems: Problems Problem Status Onset Bilateral pulmonary embolism Acute Deep vein thrombosis (DVT) of right lower extremity Acute Acute renal failure syndrome Acute
--- NOTE | 2018-06-21 10:28 | PDIAF ---
- Diagnosis Diagnosis: bilateral PE's,dvt Code Status: Full Code - Medication Management Discharge Medications: electronically signed and located in the Home Medication List. PICC Care - Routine: N/A - Orders Services needed: Home Care, Physical Therapy, Occupational Therapy Home Care Face to Face: I certify that this patient was under my care and that I had the required [id number] encounter meeting the encounter requirements on the discharge day. My findings support the fact that the patient is homebound as defined in Home Care Face to Face Continued: CMS Chapter 7 Medicare Benefits Manual 30.1.1 , The condition of the patient is such that there exists a normal inability to leave home and consequently, leaving home would require a considerable and taxing effort. Diet Recommendation: no restrictions on diet Diet Texture: Regular Texture Diet Additional Instructions: take good care of yourself let your urologist know you are on Pradaxa prior to any upcoming procedures follow up with Dr Gonzalez in the next few weeks - Follow Up Care Current Providers and Referrals: Ephraim Segundo PA [Primary Care Provider] - As per Instructions Ron Gonzalez MD [Medical Doctor] -
--- NOTE | 2018-06-21 11:54 | GDS ---
DISCHARGE DIAGNOSES: 1. Bilateral pulmonary emboli and right lower extremity deep vein thrombosis. 2. Elevated lactate. 3. History of falls. 4. Enlarged prostate. 5. Right lower lobe pulmonary nodule. 6. Hypertension. 7. Depression. HISTORY: Briefly, the patient is a very nice 67-year-old male with a history of multiple recurrent PEs, DVTs. He was taken off anticoagulation in January due to a series of falls. He presented to the emergency room with vague right leg pain and found to have a right lower extremity DVT and bilateral PEs. He was seen and evaluated by Hematology/Oncology, and their recommendation was to treat him with Pradaxa in the setting that this has a reversal agent. He will follow up with Dr. Gonzalez in the outpatient setting. CONSULTATIONS: During his stay, Dr. Leyda Barclay. HOSPITAL COURSE: 1. Bilateral PEs and right lower extremity DVT, was initially treated with a heparin drip. He was transition to Pradaxa b.i.d. He has failed Coumadin in the outpatient setting. He will follow up with Dr. Gonzalez. 2. Elevated lactate, resolved. 3. History of falls. He has had a full workup done by Neurology, and it is related to ongoing neuropathy in his legs, and they give out. He has home caregivers a few days a week. Will increase his HomeCare to more frequent visits. 4. Enlarged prostate. He has an appointment with the urologist for further evaluation. 5. Right lower lobe pulmonary nodule. This is stable on imaging, actually maybe a bit smaller. 6. Hypertension, on lisinopril. 7. Depression. Home medications resumed. DISCHARGE CONDITION: Stable. Blood pressure is 139/76. Heart rate is 72, respiratory rate of 16, O2 saturation on room air 94%, temperature 36.6 Celsius. DISCHARGE MEDICATIONS: Please see the EMR. DISCHARGE INSTRUCTIONS: 1. To follow up with Dr. Gonzalez. 2. Recommending he have increased home care. 3. To let his urologist or anyone who does any procedures on him know that he is on Pradaxa. Greater than 30 minutes discharging and coordinating the patient's care. /[id number]/MODL MTDD
[2018-06-21 12:13] VITALS: BP 129/76
[2018-06-21] MEDS: POLYETHYLENE GLYCOL 3350 17 GM PKT PO SCH (13:36)
== END 2018-06-21 14:23 | disposition home or self-care (01) | DRG 299 ==
LOC: INTOOBSV 18:35 → F3E 20:25 → OBSVTOIN 06-20 15:37
PROVIDERS: ADMIT Internal Medicine; ATTEND Internal Medicine
DX: I82.411 Acute embolism and thrombosis of right femoral vein (principal); I26.99 Other pulmonary embolism without acute cor pulmonale; Z91.81 History of falling; G62.9 Polyneuropathy, unspecified; R91.1 Solitary pulmonary nodule; N40.0 Benign prostatic hyperplasia without lower urinary tract symptoms; K21.9 Gastro-esophageal reflux disease without esophagitis; I10 Essential (primary) hypertension; F32.9 Major depressive disorder, single episode, unspecified; Z86.711 Personal history of pulmonary embolism; Z86.718 Personal history of other venous thrombosis and embolism; Z87.820 Personal history of traumatic brain injury
CPT/HCPCS: 82435-PO; 82565-PO; 82947-PO; 84132-PO; 84295-PO; 84484-PO; 84520-PO; 85014-PO; 85520-90; 96365; 97161-GP; 97165-GO; 97535-GO; G0378; G8978-GP-CI; G8979-GP-CH; G8987-GO-CJ; G8988-GO-CI; J1644; Q9967

== ENCOUNTER → 2018-10-06 | Outpatient (CLI) | payer OTHER, MEDICAID | LOC: FIMAGING 14:42 | PROVIDERS: ATTEND Internal Medicine Hematology & Oncology | DX: M54.16 Radiculopathy, lumbar region (principal); M51.36 Other intervertebral disc degeneration, lumbar region | CPT/HCPCS: 72158; A9585 ==